=== PATIENT | female | born 1965 | race Asian ===

== ENCOUNTER 2020-04-07 19:45 | Emergency (ER) | payer OTHER ==
[~2020-04-07] VITALS: Ht 157.5 cm; Wt 54.4 kg
[2020-04-07 19:56] VITALS: Ht 157.5 cm; Wt 54.4 kg
[2020-04-07 23:02] VITALS: BP 140/77
== END 2020-04-07 23:03 | disposition home or self-care (01) ==
LOC: ED 19:45
DX: I10 Essential (primary) hypertension (principal); R51 Headache; R42 Dizziness and giddiness
CPT/HCPCS: J1885